=== PATIENT | female | born 1955 | race Caucasian/White ===

== ENCOUNTER 2018-12-25 12:10 | Outpatient (CLI) | payer OTHER ==
--- NOTE | 2018-12-28 08:19 | Mammography Report ---
Reason: SCREENING MAMMO Procedure Date: 12/25/2018 Accession Number: [id number] / [id number] Procedure: [facility]A - Screening Mammo w/Catrachito CPT Code: FULL RESULT: EXAM: Screening Mammo w/Catrachito DATE: 12/25/2018 1:00 PM CLINICAL HISTORY: Screening encounter. Family history of breast cancer in an aunt and a cousin at unknown age. TECHNIQUE: Bilateral CC and MLO views were obtained. COMPARISON: 10/08/2016 through 04/27/2012. FINDINGS: The breasts demonstrate scattered fibroglandular densities bilaterally. No suspicious masses, clustered microcalcifications, or regions of architectural distortion are identified. IMPRESSION: Negative examination RECOMMENDATION: Routine annual screening unless otherwise clinically indicated. BIRADS CATEGORY 1: Negative STANDARD QUALIFYING STATEMENTS: 1. This examination was not reviewed with the aid of Computer-Aided Detection (CAD). 2. A negative or benign imaging report should not delay biopsy if clinically suspicious findings are present. Consider surgical consultation if warrented. More than 5% of cancers are not identified by imaging. 3. Dense breasts may obscure an underlying neoplasm. 4. This examination was reviewed with the aid of 3D breast imaging (tomosynthesis).
== END 2018-12-25 12:11 | disposition home or self-care (01) ==
LOC: DI 12:10
PROVIDERS: ATTEND Physician Assistant
DX: Z12.31 Encounter for screening mammogram for malignant neoplasm of breast (principal); Z80.3 Family history of malignant neoplasm of breast
CPT/HCPCS: 77063; 77067

== ENCOUNTER 2020-06-28 10:16 | Outpatient (CLI) | payer MEDICARE, OTHER ==
[2020-06-28 15:25] LABS: BASOPHILS # (AUTO) 0.1 10^3/uL (0.0-0.1); BASOPHILS % (AUTO) 0.9 %; EOSINOPHILS # (AUTO) 0.3 10^3/uL (0.0-0.7); EOSINOPHILS % (AUTO) 4.9 %; HGB - HEMOGLOBIN 13.6 g/dL (12.0-16.0); LYMPHOCYTES # (AUTO) 1.5 10^3/uL (1.5-3.5); LYMPHOCYTES % (AUTO) 23.2 %; MEAN CORPUSCULAR HEMOGLOBIN 26.7 pg (27.0-31.0); MEAN CORPUSCULAR HGB CONC 32.2 g/dL (32.0-36.0); MEAN CORPUSCULAR VOLUME 82.9 fL (81.0-99.0); MEAN PLATELET VOLUME 11.6 fL (7.9-10.8); MONOCYTES # (AUTO) 0.5 10^3/uL (0.0-1.0); MONOCYTES % (AUTO) 7.5 %; NEUTROPHILS # (AUTO) 4.1 10^3/uL (1.5-6.6); NEUTROPHILS % (AUTO) 62.9 %; PLT - PLATELET COUNT 203 10^3/uL (130-450); RED BLOOD COUNT 5.09 10^6/uL (4.20-5.40); RED CELL DISTRIBUTION WIDTH 13.9 % (12.0-15.0); WHITE BLOOD COUNT 6.5 x10^3/uL (4.8-10.8)
== END 2020-06-28 10:17 | disposition home or self-care (01) ==
LOC: LAB.S 10:16
PROVIDERS: ATTEND Nurse Practitioner Family
DX: I10 Essential (primary) hypertension (principal)
CPT/HCPCS: 36415; 84443; 85025

== ENCOUNTER 2020-08-22 13:23 | Outpatient (CLI) | payer MEDICARE, OTHER ==
--- NOTE | 2020-08-22 14:13 | CT Report ---
PROCEDURE: Abdomen/Pelvis WO INDICATIONS: UNSPECIFIED ABD PAIN TECHNIQUE: Noncontrast 5 mm thick sections acquired from the diaphragms to the symphysis. 5 mm coronal and sagi ttal reformats were then performed. For radiation dose reduction, the following was used: automated exposure control, adjustment of mA and/or kV according to patient size. COMPARISON: None. FINDINGS: Image quality: Excellent. ABDOMEN: Lung bases: Lung bases are clear. Heart size is normal. Solid organs: Diffuse moderate hepatic steatosis. No unenhanced evidence of liver mass. Normal size o f the spleen. Normal unenhanced appearance of the pancreas. Small gallstones layer dependently in the gallbladder with no findings of cholecystitis. No adrenal gland nodule or mass. No urinary tract jhonny culus, hydroureteronephrosis, or perinephric fat stranding. Peritoneum and bowel: Unenhanced bowel loops demonstrate normal wall thickness and caliber. No free fluid or air. Nodes and vessels: No retroperitoneal or mesenteric adenopathy by size criteria. Aorta and inferior vena cava are normal in caliber. Miscellaneous: No ventral hernias. PELVIS: Genitourinary: Bladder wall thickness is normal. Miscellaneous: No inguinal hernias or adenopathy. Bones: No suspicious bony lesions. No vertebral body compression fractures. IMPRESSION: No findings to explain left flank pain. Cholelithiasis. Reviewed by: Daniel Fofana MD on 08/22/2020 2:12 PM PDT Approved by: Daniel Fofana MD on 08/22/2020 2:12 PM PDT Station ID: [id number]
== END 2020-08-22 13:24 | disposition home or self-care (01) ==
LOC: DI 13:23
PROVIDERS: ATTEND Registered Nurse
DX: K80.20 Calculus of gallbladder without cholecystitis without obstruction (principal)
CPT/HCPCS: 74176

== ENCOUNTER 2021-02-19 11:09 | Outpatient (CLI) | payer MEDICARE, OTHER ==
--- NOTE | 2021-02-20 13:23 | Mammography Report ---
BILATERAL DIGITAL SCREENING MAMMOGRAM 3D/2D: 02/19/2021 CLINICAL: Family history of breast cancer. Family history of breast cancer. Comparison is made to exams dated: 12/25/2018 mammogram, 10/10/2016 mammogram, and 06/09/2014 mammogram - [facility]. There are scattered fibroglandular elements in both breasts. There is a new irregular asymmetry in the left breast middle depth inferior region seen on the mediol ateral oblique view only. No other significant masses, calcifications, or other findings are seen in either breast. IMPRESSION: INCOMPLETE: NEEDS ADDITIONAL IMAGING EVALUATION The new irregular asymmetry in the left breast is indeterminate. Additional views with possible ultr asound are recommended. This exam was interpreted at Station ID: [id number]. NOTE: For mammograms, a report in lay terms will be sent to the patient. Approximately 15% of breast malignancies will not be visualized mammographically. In the management of a palpable breast mass, a negative mammogram must not discourage biopsy of a clinically suspicious lesion. Electronically Signed By: Caity del cid/stefany:02/19/2021 19:39:02 ACR BI-RADS Category 0: Incomplete 3340F PARENCHYMAL PATTERN: (A) - The breast(s) demonstrate(s) scattered fibroglandular densities. BI-RADS CATEGORY: (0) - 0 Mammo and [place] [id number] Immediate follow-up LATERALITY: (B)
== END 2021-02-19 11:10 | disposition home or self-care (01) ==
LOC: DI.S 11:09
PROVIDERS: ATTEND Registered Nurse
DX: Z12.31 Encounter for screening mammogram for malignant neoplasm of breast (principal); R92.8 Other abnormal and inconclusive findings on diagnostic imaging of breast; Z80.3 Family history of malignant neoplasm of breast

== ENCOUNTER 2021-03-15 07:56 | Outpatient (CLI) | payer MEDICARE, OTHER ==
--- NOTE | 2021-03-16 09:12 | Mammography Report ---
UNILATERAL LEFT DIGITAL DIAGNOSTIC MAMMOGRAM 3D/2D: 03/15/2021 CLINICAL: Patient returns today to evaluate an asymmetry in the left breast. Comparison is made to exams dated: 02/19/2021 mammogram, 12/25/2018 mammogram, 10/10/2016 mammogram, mammogram, and 04/28/2013 mammogram - [facility]. There are scattered fibrog landular elements in left breast. There is an asymmetry in the left breast middle depth inferior region seen on the mediolateral obliqu e view only. This is not seen in additional views. No other significant masses or calcifications are seen in the breast. IMPRESSION: INCOMPLETE: NEEDS ADDITIONAL IMAGING EVALUATION The asymmetry in the left breast not confirmed. However, a second look with targeted ultrasound is recommended and will immediately follow. This exam was interpreted at Station ID: [id number]. NOTE: For mammograms, a report in lay terms will be sent to the patient. Approximately 15% of breast malignancies will not be visualized mammographically. In the management of a palpable breast mass, a negative mammogram must not discourage biopsy of a clinically suspicious lesion. Electronically Signed By: Miguel Daneils M.D. slc/:03/15/2021 09:24:26 ACR BI-RADS Category 0: Incomplete 3340F PARENCHYMAL PATTERN: (A) - The breast(s) demonstrate(s) scattered fibroglandular densities. BI-RADS CATEGORY: (0) - 0 Ultrasound [id number] Immediate follow-up LATERALITY: (B)
--- NOTE | 2021-03-16 09:12 | Ultrasound Report ---
LIMITED ULTRASOUND OF LEFT BREAST: 03/15/2021 CLINICAL: Patient returns today to evaluate a focal asymmetry in the left breast. Comparison is made to exams dated: 03/15/2021 mammogram, 02/19/2021 mammogram, 12/25/2018 mammogram, mammogram, 06/09/2014 mammogram, and 04/28/2013 mammogram - [facility]. Color flow and real-time ultrasound of the left breast 6 o'clock region were performed. Whiteside scale i mages of the real-time examination were reviewed. There is a 0.8 cm oval intramammary lymph node with a circumscribed margin in the left breast at 6 o' clock middle depth. This oval normal lymph node displays fatty hilum. This is in the region of the a symmetry seen on mammogram. There is an additional simple cyst or benign mildly prominent duct. IMPRESSION: BENIGN There is no sonographic evidence of malignancy. Small normal lymph node in the left breast is benign. A 1 year screening mammogram is recommended. This exam was interpreted at Station ID: [id number]. Electronically Signed By: Miguel Daniels M.D. slc/:03/15/2021 09:54:53 Ultrasound BI-RADS: 2 Benign BI-RADS CATEGORY: (2) - 2 RECOMMENDATION: (ANNUAL) - Recommend routine annual screening mammography. [id number] 1 year screening LATERALITY: (B)
== END 2021-03-15 07:57 | disposition home or self-care (01) ==
LOC: DI 07:56
PROVIDERS: ATTEND Registered Nurse
DX: R92.8 Other abnormal and inconclusive findings on diagnostic imaging of breast (principal)